=== PATIENT | male | born 1960 | race Caucasian/White ===

== ENCOUNTER 2020-08-11 23:48 | Emergency (ER) | payer OTHER ==
[2020-08-12] MEDS ORDERED: TRAMADOL HCL50 MG PO (02:23)
== END 2020-08-12 02:20 | disposition home or self-care (01) ==
LOC: ER1 23:48
DX: M25.552 Pain in left hip (principal); I10 Essential (primary) hypertension; F17.210 Nicotine dependence, cigarettes, uncomplicated; Z90.49 Acquired absence of other specified parts of digestive tract
CPT/HCPCS: 73502; 96372; 99283; J1170

== ENCOUNTER → 2021-02-26 | Outpatient (CLI) | payer OTHER ==
[~2021-02-26] MED LIST: TRAMADOL HCL50 MG PO
== END ==
LOC: KOH-I 10:48
DX: M51.17 Intervertebral disc disorders with radiculopathy, lumbosacral region (principal)
CPT/HCPCS: 72148